=== PATIENT | female | born 1975 | race Caucasian/White ===

== ENCOUNTER 2016-12-03 02:32 | Emergency (ER) | payer BC, OTHER ==
[2016-12-03] MEDS ORDERED: ONDANSETRON 4 MG TAB.RAPDIS PO ONE (03:14)
[2016-12-03] MEDS ORDERED: KETOROLAC TROMETHAMINE 60 MG/2 ML SDV IM ONE (03:14)
--- NOTE | 2016-12-03 03:26 | ER Document Report ---
HPI - HPI Patient complains to provider of: Headache, left-sided neck pain Pain Level: 5 Context: Patient is a 41-year-old female who comes emergency department for chief complaint of a headache earlier today with an episode of vomiting, and also pain all day since getting up in the left side of the neck and the left shoulde patient denies injury, she states she had a chiropractor because she frequently has tight muscles in her neck and shoulders area. She denies fever, photophobia , focal numbness or weakness, she states her headache has actually resolved from earlier today. She does not report any specific history of headaches. She denies fever. LMP within the past month. - DERM Skin Color: Normal, [place] Past Medical History - General Information source: Patient - Social History Smoking Status: Never Smoker Drug Abuse: None Lives with: Family Family History: Reviewed & Not Pertinent - Medical History Medical History: Negative Renal/ Medical History: Denies: Hx Peritoneal Dialysis Surgical Hx: Negative - Immunizations Immunizations up to date: Yes Hx Diphtheria, Pertussis, Tetanus Vaccination: Yes Vertical Provider Document - CONSTITUTIONAL General Appearance: WD/WN, No Apparent Distress - INFECTION CONTROL TRAVEL OUTSIDE OF THE [place] IN LAST 30 DAYS: No - HEENT HEENT: Atraumatic, Normal ENT Exam, Normocephalic - NECK Neck: Other - Tenderness in the left paracervical muscles and left trapezius muscle, no midline tenderness, normal range of motion, no nuchal rigidity - RESPIRATORY Respiratory: Breath Sounds Normal, No Respiratory Distress O2 Sat by Pulse Oximetry: 100 - CARDIOVASCULAR Cardiovascular: Regular Rate, Regular Rhythm - GI/ABDOMEN Gastrointestinal: Abdomen Soft, Abdomen Non-Tender - BACK Back: Normal Inspection - MUSCULOSKELETAL/EXTREMETIES Musculoskeletal/Extremeties: MAEW, FROM, Non-Tender - NEURO Level of Consciousness: Awake, Alert, Appropriate Course - Re-evaluation Re-evalutation: Patient's headache has resolved. On examination she does have tight muscles of the paracervical and trapezius muscles on the left side, otherwise completely unremarkable exam, normal neurological exam, patient is not in any distress, she is alert and well-appearing. Providing medication for muscular symptoms, tension headache medication, discussed follow-up, discussed return precautions, patient states understanding and agreement. - Vital Signs Vital signs: Temp Pulse Resp BP Pulse Ox 97.4 F 92 16 140/87 H 100 12/03/16 02:40 12/03/16 02:40 12/03/16 02:40 12/03/16 02:40 12/03/16 02:40 Discharge - Discharge Clinical Impression: Neck pain Headache Qualifiers: Headache type: unspecified Headache chronicity pattern: acute headache Intractability: not intractable Qualified Code(s): R51 - Headache Condition: Stable Disposition: HOME, SELF-CARE Additional Instructions: Your examination and symptoms are consistent with muscle spasm and tension headache. Take the Valium as prescribed, apply heat to the neck, rest the neck. Take the prescribed medication if needed for headache. Follow up with your provider. Return to the ED for any concerning or worsening symptoms - returned or severe headache, numbness/weakness, fever, etc. Prescriptions: Butalb/Acetaminophen/Caffeine [Fioricet (50-325-40 mg) Tablet] 1 tab PO Q4HP PRN #30 tab PRN Reason: Diazepam [Valium 5 mg Tablet] 1 - 2 tab PO TID #15 tablet
[2016-12-03 04:08] VITALS: BP 121/78
== END 2016-12-03 03:55 | disposition home or self-care (01) ==
LOC: ER 02:32
DX: M54.2 Cervicalgia (principal); R51 Headache
CPT/HCPCS: 99283; 96372; J1885; S0119